=== PATIENT | male | born 1960 | race Caucasian/White ===

== ENCOUNTER 2017-07-31 08:29 | Day surgery (SDC) | payer BC ==
[2017-07-25 12:32] VITALS: BMI 35.9
[2017-07-31] MEDS ORDERED: MIDAZOLAM HCL 2 MG/2 ML SINGLE DOSE VIAL ONE ×4 (10:56→11:33)
[2017-07-31] MEDS ORDERED: LIDOCAINE HCL 1%, 10 MG/ML (20ML VIAL) ONE (11:05)
[2017-07-31] MEDS ORDERED: BUPIVACAINE HCL/PF 0.5% (5MG/ML) 10 ML VIAL ONE (11:05)
[2017-07-31] MEDS ORDERED: PROPOFOL 20 ML ONE (11:23)
[2017-07-31] MEDS ORDERED: oxyCODONE HCL 5 MG TABLET PO PRN (12:06)
[2017-07-31] MEDS ORDERED: ONDANSETRON 4 MG/2 ML VIAL IVPUSH PRN (12:06)
[2017-07-31] MEDS ORDERED: PROMETHAZINE HCL 25 MG/1 ML VIAL IVPUSH PRN (12:06)
[2017-07-31 14:32] VITALS: TEMP 98
[2017-07-31 14:33] VITALS: BP 135/86; PULSE 80
--- NOTE | 2017-08-01 09:04 | OP ---
DATE OF OPERATION: 07/31/2017 PREOPERATIVE DIAGNOSIS: Mass of the dorsal surface of the left ring finger. POSTOPERATIVE DIAGNOSIS: Mass of the dorsal surface of the left ring finger. PROCEDURE PERFORMED: Excisional biopsy of mass of the dorsal surface of the proximal interphalangeal joint of the left ring finger. SURGEON: Margot Fink MD LOCOMOTIVE REPAIRER DIESEL: Herber Marr CFA ANESTHESIA: Ugo Denny MD; monitored anesthesia care was performed. The procedure consisted of the patient being brought in the operating room and gently transferred from the stretcher to the OR table with all bony prominences well padded. The left hand was prepared and draped in a sterile fashion. The patient was given intravenous antibiotics and copious irrigation throughout the procedure to minimize the risk of infection. A complete risks and benefits' discussion was conducted which was inclusive of, but not limited to, infection, bleeding, , paralysis, increased pain, need for repeat surgery. The patient asked questions, understood the procedure, and decided to proceed with surgical treatment. An appropriate timeout was conducted which was inclusive of, but not limited to, site of surgery, surgeon, anesthesiologist, type of anesthesia. Following sterile preparation and draping of the left hand, a curvilinear incision of approximately 1.5 cm was made overlying the distal interphalangeal joint of the left ring finger. Great care was taken to maintain neurovascular integrity, with hemostasis maintained using bipolar cautery. The hand had been exsanguinated and tourniquet inflated to 250 mmHg. Lidocaine 0.25% was instilled into the hand at the DIP joint to create local anesthesia. Deep dissection was carried through soft tissues, and a visible mass was noted protruding through the dorsal capsule of the PIP joint of the ring finger. This was dissected clean and free and removed from the field and sent for biopsy. The hand and finger joint was copiously irrigated, and the wounds were closed with 4-0 Prolene. The tourniquet had been deflated and removed prior to closure to maintain hemostasis. Tourniquet was deflated after approximately 20 minutes of tourniquet time. Interrupted figure-of-8 Prolene sutures were used to close the wound. The patient was then given a bulky dressing, and the patient was given a stockinette for elevation and transferred from the operating room to the recovery room in satisfactory condition. There were no intraoperative complications. MARGOT FINK M.D. [id number]
--- NOTE | 2017-08-01 13:13 | PATH ---
Surgical Pathology Report Patient Name: ADITHYA MONTENEGRO [facility]. Rec. #: [id number] /Age/Gender: 1960 (Age: 56) / M Account: [id number] Location: [facility] Taken: 07/31/2017 Received: 07/31/2017 Reported: 08/01/2017 Physicians: John Fink M.D. Specimen(s) Received LEFT RING FINGER MASS Clinical History Mass left ring finger Final Diagnosis SOFT TISSUE, LEFT RING FINGER, EXCISION: GANGLION CYST. Electronically Signed Koffi Bettencourt M.D. Gross Description Received in formalin labeled "left ring finger mass," is a 0.3 x 0.2 x 0.1 cm tyler, irregular portion of soft tissue. The specimen is submitted in toto in one cassette. 07/31/201707/31/2017
== END 2017-07-31 13:40 | disposition home or self-care (01) ==
LOC: FASU 08:29
PROVIDERS: ATTEND Orthopaedic Surgery
PROC: 0RBX0ZZ Excision of Left Finger Phalangeal Joint, Open Approach (ICD-10-PCS; principal; 2017-07-31 11:31)
DX: M67.442 Ganglion, left hand (principal)
CPT/HCPCS: 88304-TC; 94760

== ENCOUNTER 2018-12-05 07:27 | Day surgery (SDC) | payer BC ==
[2018-11-23 14:35] VITALS: BMI 33.9
[2018-12-05] MEDS: CIPROFLOXACIN 0.3% EYE DROPS 5 ML BOTTLE ONE ×3 (08:55→09:05)
[2018-12-05] MEDS: TROPICAMIDE 1% OPHTH SOLN 15 ML BOTTLE ONE ×3 (08:55→09:05)
[2018-12-05] MEDS: PHENYLEPHRINE 2.5% OPHTH SOLN 15 ML BOTTLE ONE ×3 (08:55→09:05)
[2018-12-05] MEDS: CYCLOPENTOLATE 2% OPHTH SOLN 2 ML BOTTLE ONE ×3 (08:55→09:05)
[2018-12-05] MEDS ORDERED: BSS (NA/CA/MG/K) BALANCED SALT SOLUTION OPHTH SOLN 15 ML BOTTLE ONE (10:44)
[2018-12-05] MEDS ORDERED: CARBACHOL 0.01% INTRA-OCULAR 1.5 ML VIAL ONE (10:44)
[2018-12-05] MEDS ORDERED: NEO/POLYMYX B SULF/DEXAMETH OPHTHALMIC 5ML BOTTLE ONE (10:44)
[2018-12-05] MEDS ORDERED: MIDAZOLAM HCL 2 MG/2 ML SINGLE DOSE VIAL ONE ×3 (10:56→11:07)
[2018-12-05 12:07] VITALS: BP 146/93; PULSE 85
[2018-12-05 12:12] VITALS: TEMP 98
--- NOTE | 2018-12-06 07:54 | OP ---
DATE OF OPERATION: 12/05/2018 OPERATIVE PROCEDURE: Lens Phacoemulsification with Posterior Chamber Intraocular Lens Placement, Right Eye PREOPERATIVE DIAGNOSIS: Visually Significant Cataract of Right Eye POSTOPERATIVE DIAGNOSIS: Visually Significant Cataract of Right Eye SURGEON: Adalberto Puentes M.D. ANESTHESIA: MAC ANESTHESIOLOGIST: PROCEDURE: The patient was brought to the operating room and placed under monitored anesthesia care by Anesthesia. A drop of Tetracaine was then placed over the right eye. The patient was then prepped and draped in the usual sterile manner. A speculum was then placed over the right eye. The eye was then well irrigated with copious amounts of BSS (balanced salt solution). The operating microscope was then moved into position. A paracentesis was performed using a 15 degree blade. At this point 0.5 mL of 1% preservative free-lidocaine was injected into the anterior chamber. Amvisc plus was then injected into the anterior chamber. A clear corneal incision was then formed using a 2.2 mm keratome. A capsulorrhexis was then performed in a continuous circular fashion beginning with a cystotome completed with an Utratas forceps. Hydrodissection was then performed using BSS on a cannula. The phaco probe was then introduced through the corneal wound and the cataract was removed using the phaco chop technique. Approximately 3 seconds of absolute phaco time was used. The remaining cortex was then removed using irrigation and aspiration with an I/A probe. The capsule was then filled with regular Amvisc and the capsule was noted to be intact. A previously selected foldable posterior chamber intraocular lens was then injected into the capsule through the corneal wound using a lens injector. It was then dialed into position using a Sinskey hook. The Amvisc was then removed using irrigation and aspiration. Miostat was then injected through the paracentesis to constrict the pupil. The paracentesis and corneal wound were then hydrated and noted to be water tight. A drop of Maxitrol was then placed over the eye. The speculum was removed and clear shield was taped over the eye. The patient tolerated the procedure well and there were no surgical complications. The patient was asked to follow up in my office the next day. ADALBERTO PUENTES M.D. NOLVIA/[id number]
== END 2018-12-05 12:11 | disposition home or self-care (01) ==
LOC: FASU 07:27
PROVIDERS: ATTEND Ophthalmology
PROC: 08RJ3JZ Replacement of Right Lens with Synthetic Substitute, Percutaneous Approach (ICD-10-PCS; principal; 2018-12-05 11:03)
DX: H26.8 Other specified cataract (principal)